=== PATIENT | female | born 1990 | race Caucasian/White ===

== ENCOUNTER 2024-04-28 09:10 | Emergency (ER) | payer MEDICAID ==
[2024-04-28] MEDS ORDERED: Sodium Chloride 0.9% 10 ML Syringe FLUSH PRN (09:32)
[2024-04-28] MEDS ORDERED: Sodium Chloride 0.9% 1,000 ML IV SCH (09:45)
[2024-05-01] MEDS: Ketorolac 30 MG/ML SDV IVPUSH ONE (08:27)
== END 2024-04-28 09:50 | disposition home or self-care (01) ==
LOC: LB.ED 09:10
DX: U07.1 COVID-19 (principal); F17.210 Nicotine dependence, cigarettes, uncomplicated
CPT/HCPCS: 99283

== ENCOUNTER 2024-06-01 12:34 | Emergency (ER) | payer MEDICAID ==
[2024-06-01] MEDS: Ketorolac 30 MG/ML SDV IM ONE (13:12)
[2024-06-01] MEDS: Acetaminophen/HYDROcodone 325-5 MG Tab PO ONE (13:16)
[2024-06-01] MEDS: Clindamycin HCl 150 MG Cap PO ONE (13:16)
[2024-06-01] MEDS ORDERED: Clindamycin HCl 150 MG Cap ONE ×2 (13:21→13:30)
== END 2024-06-01 13:35 | disposition home or self-care (01) ==
LOC: LB.ED 12:34
DX: K04.7 Periapical abscess without sinus (principal)
CPT/HCPCS: 96372; 99282; A9270; J1885

== ENCOUNTER 2024-08-30 21:40 | Emergency (ER) | payer MEDICAID ==
[2024-08-30] MEDS ORDERED: traMADol 50 MG Tab ONE (22:00)
[2024-08-30] MEDS ORDERED: Amoxicillin/Clavulanate K 875-125 MG Tab ONE (22:00)
== END 2024-08-30 22:20 | disposition home or self-care (01) ==
LOC: LB.ED 21:40
DX: K08.89 Other specified disorders of teeth and supporting structures (principal); Z86.16 Personal history of COVID-19
CPT/HCPCS: 99282; A9270

== ENCOUNTER 2025-05-30 15:36 | Emergency (ER) | payer MEDICAID ==
[2025-05-30] MEDS ORDERED: Amoxicillin/Clavulanate K 875-125 MG Tab ONE (16:30)
[2025-05-30] MEDS: Ketorolac 15 MG/ML SDV IM ONE (16:37)
== END 2025-05-30 16:45 | disposition home or self-care (01) ==
LOC: LB.ED 15:36
DX: K08.89 Other specified disorders of teeth and supporting structures (principal); F17.200 Nicotine dependence, unspecified, uncomplicated
CPT/HCPCS: 96372; 99283; A9270; J1885